=== PATIENT | female | born 1955 | race Caucasian/White ===

== ENCOUNTER → 2020-09-22 | Outpatient (CLI) | payer OTHER ==
[~2020-09-22] MED LIST: ACET-1600 PO; ASCO100018 PO; ASPI81TA45 PO; ATOR40TA78 PO; CALC1CAP8 PO; CBD TINCTURE PO; CHOL10003 PO; CYAN1TAB29 PO; ELDE1CAP PO; ESOM40CA PO; FLUO60TA PO; MAGN400T9 PO; VIT1CAPS51 PO; VIT1TABL32 PO
[2020-09-22 16:24] LABS: ANION GAP 5 mmol/L (5-15); CALCIUM 8.9 mg/dL (8.5-10.1); CHLORIDE 109 mmol/L (98-107); CREATININE 0.83 mg/dL (0.55-1.02)
[2020-09-22 16:25] LABS: INTERNATIONAL NORMALIZED RATIO 1.02 (0.93-1.1); PROTHROMBIN TIME 10.9 Seconds (9.6-11.5)
[2020-09-22 16:28] LABS: BASOPHILS % (AUTO) 1 % (0-1); EOSINOPHILS % (AUTO) 1 % (1-7); LYMPHOCYTES % (AUTO) 22 % (22-44); MEAN CORPUSCULAR HEMOGLOBIN 32.5 pg (27.0-34.8); MEAN CORPUSCULAR HGB CONC 33.3 g/dL (32.4-35.8); MEAN PLATELET VOLUME 9.2 fL (7.4-10.4); MONOCYTES % (AUTO) 10 % (2-9); NEUTROPHILS % (AUTO) 67 % (42-75); PLATELET COUNT 163 x10^3/uL (130-400); RED CELL DISTRIBUTION WIDTH 14.2 % (9.6-15.2)
[2020-09-22 16:31] LABS: MD NO
== END | disposition home or self-care (01) ==
LOC: STAR 14:57
PROVIDERS: ATTEND Orthopaedic Surgery
DX: Z01.810 Encounter for preprocedural cardiovascular examination (principal); Z01.818 Encounter for other preprocedural examination; M17.12 Unilateral primary osteoarthritis, left knee; M25.562 Pain in left knee; Z79.01 Long term (current) use of anticoagulants; Z20.822 Contact with and (suspected) exposure to COVID-19
CPT/HCPCS: 80048; 83036; 85025; 85610; 85730; 87081; 87635; 93005

== ENCOUNTER 2020-09-28 06:33 | Day surgery (SDC) | payer OTHER ==
[~2020-09-28] VITALS: Ht 165.1 cm; Wt 105.7 kg
[~2020-09-28 06:33] MED LIST changes: +EPINEPHRINE 1 MG/ML, 1ML ONE; +KETOROLAC 60 MG/2 ML ONE; +ROPIvacaine/PF 0.2%, 20 ML ONE; +SODIUM CHLORIDE 0.9% 50 ML ONE; +TRANEXAMIC ACID 100 MG/ML, 10ML ONE; +VANCOMYCIN 1,000 MG ONE
[2020-09-28] MEDS ORDERED: CEFAZOLIN PMX 2GM/50ML 50 ML IVPB SCH (07:00)
[2020-09-28] MEDS ORDERED: ONDANSETRON ODT 4 MG PO PRN (07:00)
[2020-09-28] MEDS ORDERED: DIPHENHYDRAMINE 50 MG CAPSULE PO PRN (07:00)
[2020-09-28] MEDS ORDERED: NS + 20MEQ KCL 1,000 ML IV SCH (07:00)
[2020-09-28] MEDS ORDERED: ACETAMINOPHEN 650 MG/20.3 ML UDC PO PRN (07:00)
[2020-09-28] MEDS ORDERED: ONDANSETRON 2MG/ML, 2ML IV PRN (07:00)
[2020-09-28] MEDS ORDERED: ZOLPIDEM 5MG TABLET PO PRN (07:00)
[2020-09-28] MEDS ORDERED: BISACODYL 10 MG SUPP PR PRN (07:00)
[2020-09-28] MEDS ORDERED: HYDROcodone/APAP 5/325 TABLET PO PRN (07:00)
[2020-09-28] MEDS ORDERED: MAGNESIUM HYDROXIDE 8%, 30ML UDC PO PRN (07:00)
[2020-09-28] MEDS ORDERED: OXYcodone IR 5MG TABLET PO PRN (07:00)
[2020-09-28] MEDS ORDERED: SENNA/DOCUSATE TABLET PO PRN (07:00)
[2020-09-28] MEDS ORDERED: CHLORHEXIDINE 15 ML UDC ONE (07:14)
[2020-09-28] MEDS ORDERED: GABAPENTIN 300 MG CAPSULE ONE (07:25)
[2020-09-28] MEDS ORDERED: ACETAMINOPHEN 500 MG TABLET ONE (07:25)
[2020-09-28] MEDS ORDERED: GABAPENTIN 300 MG CAPSULE PO ONE (07:30)
[2020-09-28] MEDS ORDERED: CHLORHEXIDINE 15 ML UDC MM ONE (07:30)
[2020-09-28] MEDS ORDERED: ACETAMINOPHEN 500 MG TABLET PO ONE (07:30)
[2020-09-28] MEDS ORDERED: LACTATED RINGERS 1,000 ML IV SCH (07:30)
[2020-09-28] MEDS ORDERED: MIDAZOLAM 1 MG/ML, 2ML ONE (07:31)
[2020-09-28] MEDS ORDERED: FENTANYL PF 250 MCG/5ML ONE (07:31)
[2020-09-28] MEDS ORDERED: BUPIVACAINE/PF 0.25% ONE (07:33)
[2020-09-28] MEDS ORDERED: PHENYLEPHRINE 10 MG/ML ONE (08:44)
[2020-09-28] MEDS ORDERED: PROPOFOL 10 MG/ML, 20ML ONE (08:44)
[2020-09-28] MEDS ORDERED: ROCURONIUM 10 MG/ML,10ML ONE (08:44)
[2020-09-28] MEDS ORDERED: NEOSTIGMINE 1 MG/ML, 10ML ONE (08:44)
[2020-09-28] MEDS ORDERED: GLYCOPYRROLATE 0.2MG/1ML, 5ML ONE (08:44)
[2020-09-28] MEDS ORDERED: SUGAMMADEX 200 MG/2 ML IVPush ONE (08:44)
[2020-09-28] MEDS ORDERED: CEFAZOLIN 1,000 MG ONE (08:44)
[2020-09-28] MEDS ORDERED: DEXAMETHASONE 4 MG/ML, 1ML ONE (08:44)
[2020-09-28] MEDS ORDERED: ONDANSETRON 2MG/ML, 2ML ONE (08:44)
[2020-09-28] MEDS ORDERED: MEPERIDINE/PF 25MG/0.5ML IVPush PRN (09:00)
[2020-09-28] MEDS ORDERED: DOCUSATE 100 MG CAPSULE PO SCH (09:00)
[2020-09-28] MEDS ORDERED: HALOPERIDOL 5 MG/ML IV PRN (09:00)
[2020-09-28] MEDS ORDERED: LABETALOL 5MG/ML, 20ML IV PRN (09:00)
[2020-09-28] MEDS ORDERED: FENTANYL PF 100 MCG/2ML IV PRN (09:00)
[2020-09-28] MEDS ORDERED: FLUOXETINE HCL 60 MG PO SCH (09:00)
[2020-09-28] MEDS ORDERED: PROMETHAZINE 25 MG/ML, 1ML IVPush PRN (09:00)
[2020-09-28] MEDS ORDERED: OXYcodone 5 MG/5 ML ORAL.SOL UDC PO PRN (09:00)
[2020-09-28] MEDS ORDERED: morphine SULFATE 10 MG/ML, 1ML IVPush PRN (09:00)
[2020-09-28] MEDS ORDERED: ACETAMINOPHEN 325 MG TABLET PO PRN (09:00)
[2020-09-28] MEDS ORDERED: hydrALAzine 20 MG/ML, 1ML IV PRN (09:00)
[2020-09-28] MEDS ORDERED: HYDROmorphone 1 MG/ML, 1ML INJ IVPush PRN (09:00)
[2020-09-28] MEDS ORDERED: FENTANYL PF 100 MCG/2ML ONE (09:07)
[2020-09-28] MEDS ORDERED: HYDROmorphone 1 MG/ML, 1ML INJ ONE (10:07)
[2020-09-28] MEDS ORDERED: OXYcodone 5 MG/5 ML ORAL.SOL UDC ONE (10:08)
[2020-09-28] MEDS: HYDROmorphone 1 MG/ML, 1ML INJ IV PRN ×3 (10:12→10:30)
[2020-09-28] MEDS ORDERED: ASPIRIN 81 MG TABLET EC PO SCH (18:00)
[2020-09-29] MEDS ORDERED: DEXAMETHASONE 4 MG/ML, 1ML IVPush SCH (06:00)
== END 2020-09-28 15:55 | disposition home or self-care (01) ==
LOC: OUT 06:33
PROVIDERS: ATTEND Orthopaedic Surgery
DX: M17.12 Unilateral primary osteoarthritis, left knee (principal); M25.762 Osteophyte, left knee; G89.18 Other acute postprocedural pain; E78.5 Hyperlipidemia, unspecified; G47.30 Sleep apnea, unspecified; Z79.899 Other long term (current) drug therapy; Z98.51 Tubal ligation status; Z90.710 Acquired absence of both cervix and uterus; Z98.890 Other specified postprocedural states; Z82.61 Family history of arthritis; Z82.49 Family history of ischemic heart disease and other diseases of the circulatory system
CPT/HCPCS: 27447; 64447; 97110; 97161; 97165; 97530; C1713; C1776; J0171; J0690; J1100; J1170; J1885; J2250; J2370; J2405; J2704; J2710; J2795; J3010; J3370; J7120